=== PATIENT | female | born 1955 | race Caucasian/White ===

== ENCOUNTER 2021-05-16 00:38 | Day surgery (SDC) | payer MEDICARE, OTHER, SELFPAY ==
[2021-05-08 14:12] VITALS: BMI 32.0
[2021-05-16 06:26] VITALS: BP 151/86; PULSE 118; RESP 18; TEMP 36.1; O2SAT 98; BMI 32.1
[2021-05-16] MEDS: LACTATED RINGERS 1,000 ML 150 ML IV CONT (06:38)
--- NOTE | 2021-05-16 06:46 | WPDANESEPPF ---
Anes - Initial Pre Proc Eval Procedure: Operation Date: 05/16/21 07:30 Proposed Procedures p Screening Colonoscopy - Abiel Cramer MD Date/Time: 05/16/21 06:46 Surgeon: Abiel Cramer MD Pre Op Diagnosis: hx of colon polyps Patient Data Age: 65 Gender: F Height: 1.6 m Weight: 82.2 kg Last Vital Signs Temp 36.1 C L 05/16/21 06:26 Pulse 118 H 05/16/21 06:26 Resp 18 05/16/21 06:26 BP 151/86 H 05/16/21 06:26 Pulse Ox 98 05/16/21 06:26 Allergies Allergy/AdvReac Type Severity Reaction Status Date / Time Penicillins Allergy Unknown Rash Verified 05/16/21 06:25 Home Medications Medication Instructions Recorded Confirmed Type ascorbic acid (vitamin C) 1 g PO DAILY 05/08/21 05/08/21 History atorvastatin 10 mg PO DAILY 05/08/21 05/08/21 History calcium carbonate 300 mg PO DAILY 05/08/21 05/08/21 History cholecalciferol (vitamin D3) 50 mcg PO DAILY 05/08/21 05/08/21 History [Vitamin D3] cinnamon bark [Cinnamon] 500 mg PO DAILY 05/08/21 05/08/21 History levothyroxine 75 mcg PO DAILY 05/08/21 05/08/21 History losartan-hydrochlorothiazide 1 tablet PO DAILY 05/08/21 05/08/21 History unqxwjj-xihd-hugfw-oreg-capryl 1 cap PO DAILY 05/08/21 05/08/21 History Patient hx anesthesia problems: none Family hx anesthesia problems: none [facility] Past Medical History Medical History (Updated 05/16/21 @ 06:47 by Trae Chen MD) HTN (hypertension) Hyperlipidemia Hypothyroidism Obesity Surgical History Surgical History (Updated 05/16/21 @ 06:47 by Trae Chen MD) H/O colonoscopy H/O colonoscopy with polypectomy Family History Family History Sibling Family history of cardiovascular disease Father Family history of cardiovascular disease, Onset Age: 69 Social History Social History Smoking status: Never smoker Alcohol intake: current Drinks per week: 4 Living arrangements: with family Spiritual care concerns: No Anes - Eval Final PreProcedure Day of Procedure 05/16/21 06:46 Patient weight: obese Heart: regular rate and rhythm Lungs: clear to auscultation Airway: Mallampati scale class II Neurological: alert and oriented Last oral intake: >/= 8 hours ASA classification: III Emergent: no Anesthetic plan: proceed Anesthesia type and monitoring: general GIVS and standard monitoring Informed Consent: The patient's anesthetic plan and its attendant risks and benefits were discussed with the patient/family/POA. Questions were solicited and answers provided to the satisfaction of the patient/family/POA.
--- NOTE | 2021-05-16 07:39 | WPDGICN ---
Assessment and Plan Assessment and plan (1) History of colon polyps: Code(s): Z86.010 - Personal history of colonic polyps Status: Acute GI Consult Note Consult date/time: 05/16/21 07:39 HPI: Disha Phillips is a 65 year old female Presents for screening colonoscopy. Patient reports that her current weight appetite bowel movements are normal. She denies abdominal pain. She has had no bleeding. She had adenomatous colon polyp identified at time of colonoscopy in 2016. She reports that her maternal aunt has had colon cancer. Otherwise her family history is noncontributory. Patient desires neoplasia screening. Review of Systems Review of Systems: All systems reviewed & are unremarkable except as noted in HPI and below PMFSH Past Medical History Medical History (Updated 05/16/21 @ 07:40 by Abiel Cramer MD) HTN (hypertension) Hyperlipidemia Hypothyroidism Obesity Surgical History Surgical History (Updated 05/16/21 @ 06:47 by Trae Chen MD) H/O colonoscopy H/O colonoscopy with polypectomy Family History Family History Sibling Family history of cardiovascular disease Father Family history of cardiovascular disease, Onset Age: 69 Social History Social History Smoking status: Never smoker Alcohol intake: current Drinks per week: 4 Living arrangements: with family Spiritual care concerns: No Meds Home Medications and Allergies Home Medications Medication Instructions Recorded Confirmed Type ascorbic acid (vitamin C) 1 g PO DAILY 05/08/21 05/16/21 History atorvastatin 10 mg PO DAILY 05/08/21 05/16/21 History calcium carbonate 300 mg PO DAILY 05/08/21 05/16/21 History cholecalciferol (vitamin D3) 50 mcg PO DAILY 05/08/21 05/16/21 History [Vitamin D3] cinnamon bark [Cinnamon] 500 mg PO DAILY 05/08/21 05/16/21 History levothyroxine 75 mcg PO DAILY 05/08/21 05/16/21 History losartan-hydrochlorothiazide 1 tablet PO DAILY 05/08/21 05/16/21 History rafbuvd-gvza-qxtra-oreg-capryl 1 cap PO DAILY 05/08/21 05/16/21 History Allergies Allergy/AdvReac Type Severity Reaction Status Date / Time Penicillins Allergy Unknown Rash Verified 05/16/21 06:25 Vital Signs Vital Signs - 24 hr 05/16/21 06:26 Temperature 97 F L Pulse Rate 118 H Respiratory Rate 18 Blood Pressure 151/86 H Pulse Oximetry 98 Exam Narrative: Physical exam reveals patient be alert. Vital signs stable. HEENT exam is unremarkable. Patient is anicteric. Lungs are clear to auscultation and percussion. Heart is without murmur or extra sounds. Abdominal exam bowel sounds present soft nontender with no organomegaly. Digital external rectal exam is normal.
[2021-05-16 08:16] VITALS: BP 109/71; PULSE 84; RESP 22; O2SAT 98
[2021-05-16 08:26] VITALS: BP 104/65; PULSE 84; RESP 20; O2SAT 99
[2021-05-16 08:36] VITALS: BP 123/89; PULSE 90; RESP 18; O2SAT 99
== END 2021-05-16 08:49 | disposition home or self-care (01) ==
PROVIDERS: PCP Physician Assistant; Visit Provider Internal Medicine Gastroenterology
PROC: 0DJD8ZZ Inspection of Lower Intestinal Tract, Via Natural or Artificial Opening Endoscopic (ICD-10-PCS; CPT 45378; principal; 2021-05-16 07:30)
DX: Z12.11 Encounter for screening for malignant neoplasm of colon (principal); D12.5 Benign neoplasm of sigmoid colon; K63.5 Polyp of colon; I10 Essential (primary) hypertension; E78.5 Hyperlipidemia, unspecified; E03.9 Hypothyroidism, unspecified; E66.9 Obesity, unspecified; Z68.32 Body mass index [BMI] 32.0-32.9, adult
CPT/HCPCS: 45385; 88305; J2704; J7120

== ENCOUNTER 2025-06-06 00:49 | Day surgery (SDC) | payer MEDICARE, OTHER, SELFPAY ==
--- OUTSIDE RECORDS SUMMARY | 2014-04-06 11:30 | XMS_ITS | Continuity of Care Document ---
Author Organization [facility] Address [address] [place] [address] [address] [place] [address] Phone Care Team Providers Care Action Finisher Name Role Phone Lelia PT, MSGalen Unavailable Unavailable Procedures Procedure Date PT RE-EVALUATION THERAPEUTIC EXERCISES NEUROMUSCULAR RE-ED FUNC ACTIVITY THERAPEUTIC EXERCISES NEUROMUSCULAR RE-ED FUNC ACTIVITY HOT/COLD PACK ELECTRIC STIMULATION UNATT THERAPEUTIC EXERCISES NEUROMUSCULAR RE-ED MANUAL THERAPY FUNC ACTIVITY HOT/COLD PACK ELECTRIC STIMULATION UNATT THERAPEUTIC EXERCISES NEUROMUSCULAR RE-ED MANUAL THERAPY FUNC ACTIVITY HOT/COLD PACK ELECTRIC STIMULATION UNATT THERAPEUTIC EXERCISES NEUROMUSCULAR RE-ED MANUAL THERAPY FUNC ACTIVITY HOT/COLD PACK ELECTRIC STIMULATION UNATT PT EVALUATION THERAPEUTIC EXERCISES MANUAL THERAPY HOT/COLD PACK ELECTRIC STIMULATION UNATT THERAPEUTIC EXERCISES NEUROMUSCULAR RE-ED FUNC ACTIVITY 15 MIN HOT/COLD PACK ELECTRIC STIMULATION UNA THERAPEUTIC EXERCISES NEUROMUSCULAR RE-ED FUNC ACTIVITY 15 MIN HOT/COLD PACK ELECTRIC STIMULATION UNA THERAPEUTIC EXERCISES NEUROMUSCULAR RE-ED FUNC ACTIVITY 15 MIN HOT/COLD PACK ELECTRIC STIMULATION UNATT THERAPEUTIC EXERCISES NEUROMUSCULAR RE-ED FUNC ACTIVITY 15 MIN HOT/COLD PACK ELECTRIC STIMULATION UNATT THERAPEUTIC EXERCISES NEUROMUSCULAR RE-ED MANUAL THERAPY HOT/COLD PACK ELECTRIC STIMULATION UNA PT EVALUATION THERAPEUTIC EXERCISES MANUAL THERAPY HOT/COLD PACK ELECTRIC STIMULATION UNATT Advance Directives Directive Yes / No Effective Date File Name No Information Encounters Encounter Description Practice Location Reason(s) For Visit Diagnoses Date Provider Providers Copied on Encounter [facility], [id number], tel:[phone] Warren No Information 0 4 Lelia Galen. [address] [facility], [place] [address], . tel: [phone] [facility] [address], [place], [id number], tel:[phone] Warren No Information 1 4 Lelia Galen. [address] [facility], [facility] [address] [address], [place]. tel: [phone] [facility], [place], [id number], tel:[phone] Warren No Information 6-201 4 Lelia Galen. [address] [facility], [facility] [address], [place] [address], [place]. tel: [phone] [facility] [address], [place], [place], [address], [place] tel:[phone] Warren No Information Mar- 4-201 4 Lleia Galen. [address] [place] [address], [address], [place], [place], [facility], [place]. tel: [phone] [facility] [address], [place], [place], [id number], [place] tel:[phone] Warren No Information 1-201 4 Lelia Galen. [address] [place] [address], [address], [place], [place], [facility], [place]. tel: [phone] [facility] [address], [place], [place], [address], [place] tel:[phone] Warren No Information 9-201 4 Lelia Galen. [address] [place] [address], [address], [place], [place], [facility], [place]. tel: [phone] [facility] [address], [place], [place], [address], [place] tel:[phone] Warren No Information Mar-2 8-201 4 [employer]. . [facility], [place], [place], [address], [place] tel:[phone] Warren No Information Mar-2 6-201 4 Lelia Galen. [address] [place] [address], [address], [place], [place], [facility], [place]. tel: [phone] [facility] [address], [place], [place], [address], [place] tel:[phone] Warren No Information Mar-2 1-201 4 Lelia Galen. [address] [place] [address], [address], [place], [place], [facility], [place]. tel: [phone] [facility] [address], [place], [place], [id number], [phone] Beth No Information 4 Lelia Aaron. [address] [facility], [address], [place], [place], [facility], . tel: [phone] [address], [place], [place], [id number], tel:[phone] Beth No Information 4 Lelia Aaron. [address] [place] [address], [address], [place], [place], [facility], . tel: [phone] [address], [place], [place], [id number], tel:[phone] [place] LumbagoPain in joint involving lower leg 4 Lelia Aaron. [address] [place] [address], [facility], [place], [place], [facility], . tel: [phone] Family History Family Member Type Diagnosis Age At Onset No Information Payers Payer name Insurance type Covered republican ID Authormichael ibarra(s) [facility] [id number] [facility] 2013 Social History Type Description Quantity Date Captured Comments Sex Female Smoking Status No Information Chief Complaint And Reason For Visit No Information Reason For Referral Reason For Referral No Information History Of Present Illness Encounter Date Complaint History Of Prese nt Illness No Information Functional Status Date Functional Assessmen t No Information Instructions Date Instruction Additional Infor mation No Information Assessments Type Assessment Date No Information Patient Care Teams Name Effective Dates (start - stop) Status Members No Information
[2025-05-23 08:28] VITALS: BMI 26.6
--- OUTSIDE RECORDS SUMMARY | 2025-06-06 00:53 | XMS_ITS | Clinical Summary ---
Author Organization [facility] Address [address] [place] [address] Care Team Providers Care Knit Goods Cutter Hand Name Role Phone Raul Haley MD Primary Care Provider [phone] Allergies Active Allergy Reactions Criticality Noted Date Comments Penicillins Rash Medium 03/19/2012 Medications amino acids 82-328 gram-kcal/100 g powder Take by mouth. Activ e BIOTIN ORAL Take by mouth. Act virginie CINNAMON BARK ORAL Active coenzyme Q10 10 mg capsule Take 10 mg by mouth. Active TURMERIC, BULK, MISC by Misc.(Non-Drug ; Combo Route) route. Active magnesium citrate 100 mg tablet Take by mouth. Activ e ezetimibe (ZETIA) 10 mg tablet Take 1 tablet (10 mg total) by mouth daily 30 tablet 5 9 Active atorvastatin (LIPITOR) 10 mg tablet Take 10 mg by mouth daily Active levothyroxine (SYNTHROID) 75 mcg tablet Take 1 tablet by mouth once daily with breakfast 90 tablet 1 Active fexofenadine (COLIN) 180 mg tablet Take 180 mg by mouth daily Active losartan-hydroC HLOROthiazide (HYZAAR) 100-12.5 mg per tablet Take 1 tablet by mouth daily 1 Active tobramycin-dexA METHasone (TOBRADEX) ophthalmic solution 1 Active vit D3-vit S-kdmrugcna-vyh s [phone] kyur-rvg-fy-mg tablet Take by mouth Active Active Problems Problem Noted Date Diagnosed Date Essential hypertension 08/10/2018 Acquired hypothyroidism 08/10/2018 Pure hypercholesterolemia 08/10/2018 Immunizations Immunization Administration Dates Next Due Flucelvax Influenza Quad 06/14/2019,06/22/2018 Influenza, Quadrivalent, Elsy l Culture-based MDCK, Preservative Free, Antibiotic Free, Intramuscular 06/13/2020,06/14/2019 Influenza, Quadrivalent, Spl it, Preservative Free, Intramuscular 06/23/2017 Influenza, Trivalent, IM (MDV) 06/08/2015,2013,06/08/2013 Influenza, Trivalent, Preser vative Free, Intramuscular 06/07/2016 Influenza, Unspecified 06/14/2019,07/02/2018, ZOSTER LIVE 06/28/2019,10/24/2016 ZOSTER Recombinant 09/02/2019,06/28/2019, 019 Surgical History Surgery Date Site/Laterality Comments MENISCUS SURGERY 09/08/2012 - 09/07/2013 Left LEFT OOPHORECTOMY 09/08/1987 - 09/07/1988 Left TRIGGER FINGER RELEASE 2015 Medical History Medical History Date Comments Hypothyroidism Allergic Hyperlipidemia Hypertension Family History Medical History Relation Name Comments Diabetes Brother Heart disease Brother Congenital heart disease Father Diabetes Father Heart failure Father Hypertension Father Arthritis Mother Dementia Mother Diabetes Mother Hypertension Mother Stroke Mother Cancer Sister Diabetes Sister Relation Name Status Comments Brother Father Mother Alive Sister Social History Tobacco Use Types Packs/Day Years Used Date Smoking Tobacco: Never Smokeless Tobacco: Never Alcohol Use Standard Drinks/Week Comments Yes 0 (1 standard drink = 0.6 oz pur e alcohol) on weekends AUDIT-C Answer Date Recorded Frequency of Alcohol Consumption Not on file 09/15/2019 Average Number of Drinks 3 or 4 020 Frequency of Binge Drinking Not on file 04/2020 PHQ-2 Answer Date Recorded PHQ-2 Score 0 04/29/2019 Personal Safety Answer Date Recorded Getting School Help Needed Not on file 08/31 Comments Unknown Sex and Gender Information Value Date Recorded Sex Assigned at Not on file Legal Sex Female 10:34 AM ALL TERRAIN VEHICLE TECHNICIAN Gender Identity Not on file Sexual Orientation Not on file Obstetrics History Para Term AB IAB SAB Ectopic Multiple Livin g Live Births 2 2 Date Outcome GA Total Labor Labor/2nd/3rd Weight Sex Type Anes PTL Marybel A1 A5 Name Clin Para Para Last Filed Vital Signs Vital Sign Reading Time Taken Comments Blood Pressure 138/88 09/15/2019 10:53 AM ALL TERRAIN VEHICLE TECHNICIAN Pulse 100 09/15/2019 10:47 AM ALL TERRAIN VEHICLE TECHNICIAN Temperature 36.9 C (98.5 F) 09/15/2019 10:47 AM ALL TERRAIN VEHICLE TECHNICIAN Respiratory Rate 15 09/15/2019 10:4 7 AM ALL TERRAIN VEHICLE TECHNICIAN Oxygen Saturation 97% 09/15/2019 10: 47 AM ALL TERRAIN VEHICLE TECHNICIAN Inhaled Oxygen Concentration - - Weight 84.3 kg (185 lb 12.8 oz) 021 12:07 PM CDT Height 158.8 cm (5' 2.5) 06/15/2021 12 :07 PM CDT Body Mass Index 33.44 06/15/2021 12:07 PM CDT Plan of Treatment Health Maintenance Due Date Last Done Comments DTaP/Tdap/Td Vaccine (1 - Tdap) 1966 Hepatitis B Screening 1973 Osteoporosis Screening-Bone Density Scan 11/21/2018 11/21/2016 Fall Risk Assessment 03/17/2020 03/17/2019, 08/10/2018, 12/22/2017 Depression Screening 09/15/2020 09/15/2019, 03/17/2019, 08/10/2018, Additional history exists Well Visit 65+ 09/15/2020 09/15/2019, 08/10/2018 Pneumococcal vaccine 65+ (2 of 2 - PCV20 or PCV21) 04/21/2022 04/21/2021 Breast Cancer Screening-Mammogram 05/06/2025 05/06/2024, 11/25/2022, 09/21/2021, Additional history exists Influenza Vaccine (#1) 2025 0, 06/14/2019, 06/14/2019, Additional history exists Colon Cancer Screening-Colonoscopy 03/23/2027 03/23/2017 Colon Cancer Screening-CT Colonography Discontinued 03/23/2017 Colon Cancer Screening-DNA Stool Discontinued 03/23/20 17 Colon Cancer Screening-FIT Discontinued 03/23/2017 Colon Cancer Screening-Sigmoidoscopy Discontinued 03/23/2017 Hepatitis C Screening Completed 10/13/2018 Zoster Vaccine Completed 09/02/2019, 06/09, 06/28/2019, Additional history exists Procedures Procedure Name Priority Date/Time Associated Diagnosis Comments DIAGNOSTIC MAMMOGRAM BILATERAL W TRU Schedule Routine, Read Routine (OP Routine) 05/06/2024 12:19 PM CDT Abnormal mammogram Encounter for screening mammogram for malignant neoplasm of breast HEPATITIS C ANTIBODY Routine 10/13/2018 7:27 AM ALL TERRAIN VEHICLE TECHNICIAN HM COLONOSCOPY Routine 03/23/2017 DEXA SCAN Routine 11/21/2016 from Last 3 Months or Most Recently Relevant to Health Maintenance Results * Diagnostic Mammogram Bilateral W Tru (05/06/2024 12:19 PM CDT) Anatomical Region Laterality Modality Breast Bilateral Mammography 05/06/2024 1:19 PM CDT Impressions 05/06/2024 1:19 PM CDT Unchanged asymmetry in the central LEFT breast, thought probably benign. No mammographic evidence of malignancy within EITHER breast. OVERALL FINAL ASSESSMENT: BI-RADS Category 3: Probably Benign. RECOMMENDATION: Recommend follow-up diagnostic breast imaging in 1 year with BILATERAL diagnostic mammogram and ultrasound if needed. Electronically signed by: Mine Burgos M.D. Narrative 05/06/2024 1:19 PM CDT EXAMINATION: BILATERAL DIGITAL DIAGNOSTIC MAMMOGRAM INCLUDING CAD AND BILATERAL DIGITAL BREAST TOMOSYNTHESIS; LEFT BREAST SONOGRAM HISTORY: 68-year-old female who is undergoing 6 month follow-up evaluation of a probably benign asymmetry seen in the LEFT breast for which attempted biopsy was unsuccessful. The patient has history of breast reduction and also takes hormone replacement therapy. COMPARISON: Multiple priors, most recently biopsy attempt images on 09/03/2023 dating back to mammograms on 06/28/2015 TECHNIQUE: Full field digital mammographic views of BOTH breasts were performed, including computer aided detection (CAD) and BILATERAL digital breast tomosynthesis (DBT). Directed ultrasound evaluation of the LEFT breast was performed. BREAST PARENCHYMAL COMPOSITION: There are scattered areas of fibroglandular density. MAMMOGRAM FINDINGS: Breast parenchymal density has overall increased throughout BOTH breasts compared to prior mammograms, likely related to hormone therapy. The asymmetry in the central LEFT breast seen best on the craniocaudal projection appears unchanged compared to 2022 but is increased from 2020, possibly due to overall parenchymal tissue increase. No suspicious mass, grouped microcalcification, or architectural distortion is seen. SONOGRAM FINDINGS: There is no focal abnormal solid or cystic lesion suggestive of malignancy in the area of recent concern. Tiny cyst is noted adjacent to benign-appearing glandular tissue. These findings were discussed with the patient by Dr. Burgos. Procedure Note Mine Burgos MD - 05/06/2024 EXAMINATION: BILATERAL DIGITAL DIAGNOSTIC MAMMOGRAM INCLUDING CAD AND BILATERAL DIGITAL BREAST TOMOSYNTHESIS; LEFT BREAST SONOGRAM HISTORY: 68-year-old female who is undergoing 6 month follow-up evaluation of a probably benign asymmetry seen in the LEFT breast for which attempted biopsy was unsuccessful. The patient has history of breast reduction and also takes hormone replacement therapy. COMPARISON: Multiple priors, most recently biopsy attempt images on 09/03/2023 dating back to mammograms on 06/28/2015 TECHNIQUE: Full field digital mammographic views of BOTH breasts were performed, including computer aided detection (CAD) and BILATERAL digital breast tomosynthesis (DBT). Directed ultrasound evaluation of the LEFT breast was performed. BREAST PARENCHYMAL COMPOSITION: There are scattered areas of fibroglandular density. MAMMOGRAM FINDINGS: Breast parenchymal density has overall increased throughout BOTH breasts compared to prior mammograms, likely related to hormone therapy. The asymmetry in the central LEFT breast seen best on the craniocaudal projection appears unchanged compared to 2022 but is increased from 2019, possibly due to overall parenchymal tissue increase. No suspicious mass, grouped microcalcification, or architectural distortion is seen. SONOGRAM FINDINGS: There is no focal abnormal solid or cystic lesion suggestive of malignancy in the area of recent concern. Tiny cyst is noted adjacent to benign-appearing glandular tissue. These findings were discussed with the patient by Dr. Burgos. IMPRESSION: Unchanged asymmetry in the central LEFT breast, thought probably benign. No mammographic evidence of malignancy within EITHER breast. OVERALL FINAL ASSESSMENT: BI-RADS Category 3: Probably Benign. RECOMMENDATION: Recommend follow-up diagnostic breast imaging in 1 year with BILATERAL diagnostic mammogram and ultrasound if needed. Electronically signed by: Mine Burgos M.D. us Boyd Patten MD IMG MAMMO PROCEDURES Final Res ult * Hepatitis C antibody (10/13/2018 7:27 AM ALL TERRAIN VEHICLE TECHNICIAN) Pathologist [facility] Hep C Ab NON-REACTI VE NON-REACTI VE [facility] [place] SIGNAL TO CUT-OFF 0.01 <1.00 [facility] [place] 10/13/2018 7:27 AM ALL TERRAIN VEHICLE TECHNICIAN 10/13/2018 7:29 AM ALL TERRAIN VEHICLE TECHNICIAN Narrative [facility] - 10/14/2018 9:43 AM ALL TERRAIN VEHICLE TECHNICIAN FASTING:YES FASTING: YES Resulting Agency Comment Performing Organization Information: Site ID: [id number] Name: [facility]na Lemon Address: [address] [address] Director: Bowen Mai D.O., MPH Aracely Greer MD LAB MICROBIOLOGY - GEN ERAL ORDERABLES Final Result [facility] [place] * COLONOSCOPY (03/23/2017) Pathologist [facility], [facility] Colonoscopy Abnormal Comment:polyps removed, repe at in 5 years Historical Provider HEALTH MAINTENANCE Final Result * DEXA SCAN (11/21/2016) Pathologist [facility], [facility] DEXA Scan Normal Historical Provider HEALTH MAINTENANCE Final Result from Last 3 Months or Most Recently Relevant to Health Maintenance Insurance MEDICARE [facility] [id number] [place] [address] MEDICARE [facility] [employer] LASHELL MARCUM Care Teams Knit Goods Cutter Hand Relationship Specialty Start Date End Date Raul Haley MD PCP - General Internal Medicine 09/11/22
--- OUTSIDE RECORDS SUMMARY | 2025-06-06 00:53 | XMS_ITS | Clinical Summary ---
Author Organization [facility] Address [facility] [place] [address] Care Team Providers Care Telephone Switchboard Operator Name Role Phone Boyd Patten MD Primary Care Provider [phone] Allergies Active Allergy Reactions Criticality Noted Date Comments Penicillins Diarrhea,Hives,Nausea and Vomiting 12/21/2021 Medications Cinnamon Bark Powder Active TURMERIC OR Active levothyroxine 75 MCG tablet 2 Active Amino Acids (COMPLETE AMINO ACID MIX) Powder Active atorvastatin 10 MG tablet Take 1 tablet (10 mg total) by mouth every other day. 2 Active Coenzyme Q10 10 MG capsule Take 10 mg by mouth daily. Active losartan-hydro CHLOROthiazide 100-12.5 MG Tab Take 1 tablet by mouth daily. 2 Active Magnesium Citrate 100 MG Tab Active Multiple Vitamin (MULTIVITAMIN ADULT OR) Active progesterone (PROMETRIUM) 100 MG capsule Take 100 mg by mouth nightly at bedtime. 2 Active OZEMPIC 0.25/0.5 MG/DOSE 2 MG/1.5ML injection (PEN) INJECT 1/2 (ONE-HALF) MG SUBCUTANEOUSLY ONCE A WEEK 2 Active progesterone (PROMETRIUM) 200 MG capsule Take 1 capsule (200 mg total) by mouth nightly. 4 Active Cholecalcifero l (D3 OR) Active estradiol 6 MG pellet 1 each (6 mg total) every 3 (three) months. Active testosterone 75 MG pellet Inject 65 mg into the skin every 3 (three) months. Active Hospital, Clinic, or Other Facility Administered Medication Ordered Dose Route Frequency Start Date End Date Status methylPREDNISolone acetate (DEPO-Medrol) injection 40 mgIndications:Osteoarthritis of left knee, unspecified osteoarthritis type 40 mg IX Once 12/25/2021 Activ e Active Problems No known active problems Immunizations Immunization Administration Dates Next Due Fluad influenza vaccine, Chauncey drivalent (aIIV4), Inactivated, adjuvanted, preservative free, 0.5 mL,IM use 06/11/2021 Influenza (Generic) 06/07/2016, 5,06/08/2014,2012 Influenza Adult (Generic) 06/13/2020,03/2019,06/22/2018,2016 Pneumococcal (Prevnar 13) 04/21/2021 Shingrix 09/02/2019,06/28/2019 Zoster (Zostavax) 35973 Unt/0.65Ml 10/24/2016 Family History Medical History Relation Comments No Known Problems Brother Diabetes Father Heart Disease Father Heart defect Hypertension Father No Known Problems Maternal Aunt Arthritis Maternal Grandfather Cancer Maternal Grandmother At age 83 No Known Problems Maternal Uncle Diabetes Mother Hypertension Mother Stroke Mother No Known Problems Paternal Aunt No Known Problems Paternal Grandfather No Known Problems Paternal Grandmother No Known Problems Paternal Uncle No Known Problems Sister Relation Status Comments Brother Father Maternal Aunt Maternal Grandfather Alive Maternal Grandmother Alive Maternal Uncle Mother Paternal Aunt Paternal Grandfather Paternal Grandmother Paternal Uncle Sister Social History Tobacco Use Types Packs/Day Years Used Date Smoking Tobacco: Never Passive Smoke Exposure: Never Smokeless Tobacco: Never Tobacco Cessation:Counseling Given: No Comments:NA Alcohol Use Standard Drinks/Week Comments Yes 10 (1 standard drink = 0.6 oz pu re alcohol) social PHQ-2 Answer Date Recorded Patient Health Questionnaire-2 Score 0 02/14/2025 Comments No Sex and Gender Information Value Date Recorded Sex Assigned at Not on file Legal Sex Female 2:19 PM CDT Gender Identity Not on file Sexual Orientation Not on file Last Filed Vital Signs Vital Sign Reading Time Taken Comments Blood Pressure 137/86 02/14/2025 2:43 PM CDT Pulse 108 02/14/2025 2:43 PM CDT Temperature 36.9 C (98.5 F) 02/14/2025 2:43 PM CDT Respiratory Rate - - Oxygen Saturation 100% 02/14/2025 2:43 PM CDT Inhaled Oxygen Concentration - - Weight 73 kg (161 lb) 02/14/2025 2:43 PM CDT Height 160 cm (5' 3) 02/14/2025 2:43 PM CDT Body Mass Index 28.52 02/14/2025 2:43 PM CDT Plan of Treatment Health Maintenance Due Date Last Done Comments Colorectal Cancer Screening Colonoscopy (10 Years) 1955 Hepatitis C 1973 DTaP, Tdap and Td Vaccines (1 - Tdap) 1974 Annual Medicare Wellness Visit 2020 Dexa Scan (General) 2020 Pneumococcal Vaccine: 50+ Years (2 of 2 - PPSV23) 04/21/2022 04/21/2021 COVID-19 Vaccine (4 - 2024- season) 2025 06/16/2021, 12/03/2020, 11/02/2020 Mammogram Screening 05/06/2026 05/06/2024, 09/03/2023, 08/04/2023, Additional history exists RSV Immunization or 60+ Years (1 - 1-dose 75+ series) 2030 Zoster Vaccines Completed 09/02/2019, 06/09, 10/24/2016 PHQ-2 (Physician [place]) Completed 02/14/2025 Meningococcal B Vaccine Aged Out No l onger eligible based on patient's age to complete this topic Meningococcal Vaccine Aged Out No manisha noy eligible based on patient's age to complete this topic RSV Immunizations Under 20 Months Aged Out No longer eligible based on patient's age to complete [place] [id number] [employer] Care Teams Telephone Switchboard Operator Relationship Specialty Start Date End Date Boyd Patten MD [address] [place] [address] PCP - General FAMILY PRACTICE 08/16/24
--- OUTSIDE RECORDS SUMMARY | 2025-06-06 00:53 | XMS_ITS | Clinical Summary ---
Author Organization [facility] Address [address] [address] Phone Care Team Providers Care Dowel Pin Man Name Role Phone Boyd Patten MD Primary Care Provider [phone] Allergies Active Allergy Reactions Criticality Noted Date Comments Penicillins Rash,Diarrhea,Hives, Nausea and Vomiting High 03/19/2012 Medications CINNAMON BARK (CINNAMON ORAL) Acti ve MULTIVITAMINS WITH FLUORIDE (MULTI-VITAMIN ORAL) Active AMINO ACIDS (AMINO ACID ORAL) Take by mouth. Acti ve coenzyme Q10 Capsule Take 10 mg by mouth daily. Active TURMERIC, BULK, MISC by Misc.(Non-Drug; Combo Route) route. Active losartan-hydroCHLO ROthiazide (HYZAAR) 100-12.5 mg tabletIndications: Well female exam with routine gynecological exam,Special screening examination for human papillomavirus (HPV),Screening for malignant neoplasm of cervix 01/21/20 18 Active MAGNESIUM ORALIndications:We ll female exam with routine gynecological exam,Special screening examination for human papillomavirus (HPV),Screening for malignant neoplasm of cervix Take by mouth. Active levothyroxine 75 mcg tablet TAKE 1 TABLET BY MOUTH ONCE DAILY WITH BREAKFAST 08/12/20 19 Active Vit D3 & M-Ddylqvwmh-Vidy [id number] deki-tap-ad-mg Tablet Take by mouth. Activ e magnesium citrate 100 mg Tablet Take by mouth. A ctive atorvastatin (LIPITOR) 10 mg tablet Take 10 mg by mouth daily. Active progesterone micronized (PROMETRIUM) 200 mg Capsule Take 200 mg by mouth daily. 09/04/20 24 Active estradioL 6 mg Pellet 6 mg by Implant route every 90 days. Active testosterone (TESTOPEL) 75 mg Pellet Inject 65 mg by subcutaneous injection every 90 days. ACTUAL DOSE 62.5MG Active Active Problems No known active problems Encounters Date Type Department Care Team Description 05/24/2025 External Device Data [facility]STRACTION Provider, Abstract 05/17/2025 External Device Data [facility] Provider, Abstract 04/13/2025 External Device Data [facility] Provider, Abstract 04/12/2025 External Device Data [facility] Provider, Abstract 03/23/2025 External Device Data [facility] Provider, Abstract 03/23/2025 External Device Data [facility] Provider, Abstract 03/22/2025 External Device Data [facility]CTION Provider, Abstract from Last 3 Months Immunizations Immunization Administration Dates Next Due (PFIZER)(12 YR UP) COVID-19 VACCINE - EMERGENCY USE AUTHORIZATION, MRNA, [id number](PF) 30 MCG/0.3 ML IM SUSP 06/16/2021,12/03/2020,11/02/2020 (SHINGRIX)(50 YRS UP) ZOSTER VACCINE RECOMBINANT, 0.5 ML, IM 06/28/2019 INFLUENZA VACCINE HIGH DOSE QUADRIVALENT 65 YR UP PF IM 06/05/2022 INFLUENZA VACCINE QUADRIVALE NT 6 MOS UP CELL DERIVED PF IM 06/14/2019 Influenza Seasonal Unspecifi ed Formulation IM 06/23/2017,06/08/2015,06/08/2014,2012 Zoster Vaccine Live SQ 10/24/2016 Family History Medical History Relation Name Comments Heart Disease Brother Diabetes Father Colon Cancer Maternal Aunt Ovarian Cancer Maternal Grandmother Cancer Maternal Uncle brain Diabetes Mother Hypertension Mother Stroke Mother Relation Name Status Comments Brother Father Maternal Aunt Maternal Grandmother Maternal Uncle Mother Social History Tobacco Use Types Packs/Day Years Used Date Smoking Tobacco: Never Smokeless Tobacco: Never Tobacco Cessation:Counseling Given: Not Answered Alcohol Use Standard Drinks/Week Comments Yes 0 (1 standard drink = 0.6 oz pur e alcohol) 7-8 Comments No Sex and Gender Information Value Date Recorded Sex Assigned at Not on file Legal Sex Female 6:03 AM ALUMINUM BOATS ASSEMBLER Gender Identity Not on file Sexual Orientation Not on file Occupation Industry Job Start Date Job End Date Not on file Not on file Not on file Not on file Last Filed Vital Signs Vital Sign Reading Time Taken Comments Blood Pressure 152/84 10/12/2024 1:19 PM ALUMINUM BOATS ASSEMBLER Pulse 95 10/12/2024 1:19 PM ALUMINUM BOATS ASSEMBLER Temperature 37.7 C (99.8 F) 10/12/2024 1:19 PM ALUMINUM BOATS ASSEMBLER Respiratory Rate - - Oxygen Saturation 98% 10/12/2024 1:19 PM ALUMINUM BOATS ASSEMBLER Inhaled Oxygen Concentration - - Weight 73.5 kg (162 lb) 10/12/2024 1:19 PM ALUMINUM BOATS ASSEMBLER Height 160 cm (5' 3) 10/12/2024 1:19 PM ALUMINUM BOATS ASSEMBLER Body Mass Index 28.7 10/12/2024 1:19 PM ALUMINUM BOATS ASSEMBLER Plan of Treatment Health Maintenance Due Date Last Done Comments Pre-Diabetes and Diabetes Screening 1955 DTAP/TDAP/TD VACCINES (1 - Tdap) 1974 FIT-DNA Q 3 years 2000 FIT/FOBT Q 1 year 2000 Flex Sig/CT Colonography Q 5 years 2000 COLORECTAL SCREENING 09/08/2019 09/08/2009 (Previously completed) Colorectal Cancer Screening 09/08/2019 OSTEOPOROSIS SCREENING 2020 PNEUMOCOCCAL VACCINE 50+ YEA RS (2 of 2 - PCV20 or PCV21) 04/21/2022 04/21/2021 INFLUENZA VACCINE (#1) 2025 2, 06/11/2021, 06/13/2020, Additional history exists BREAST CANCER SCREENING 05/06/2025 05/06/20 24, 05/06/2024, 09/03/2023, Additional history exists COVID-19 Vaccine (4 - 2024-2 6 season) 2025 06/16/2021, 12/03/2020, 11/02/2020 RSV VACCINE (60+ or ) (1 - 1-dose 75+ series) 2030 ZOSTER VACCINE Completed 09/02/2019, 06/09, 10/24/2016 Procedures Procedure Name Priority Date/Time Associated Diagnosis Comments MAMMO 3D ARIS SCREEN BILAT W OR WO CAD Routine 08/29/2020 from Last 3 Months or Most Recently Relevant to Health Maintenance Results * MAMMO SCRN BILAT 3D ARIS W OR WO CAD (08/29/2020) Anatomical Region Laterality Modality Breast Bilateral Mammography us Abstract Provider MAMMO ORDERABLES Edited Result - Final from Last 3 Months or Most Recently Relevant to Health Maintenance Insurance MEDICARE PART A AND B [facility] RX [facility] DATA Medicare Part B Care Teams Dowel Pin Man Relationship Specialty Start Date End Date Boyd Patten MD [address] [place], [place] [id number] PCP - General Family Practice 10/12/24
--- OUTSIDE RECORDS SUMMARY | 2025-06-06 00:53 | XMS_ITS | Clinical Summary ---
Author Organization [facility] Address [address] [place] [address] Care Team Providers Care Pattern Chain Builder Name Role Phone Amauri Crowe MD Primary Care Provider [phone] Source Comments [facility],non-owned Affiliates and Associated Physician Practices is amultiple site organization consisting of ambulatory clinics and hospital sitesin [place], [place] and [place]. This disclosure is being madepursuant to the Care Everywhere program and may not contain all information available regarding this patient. Last updated 18.[facility] Allergies Active Allergy Reactions Criticality Noted Date Comments Penicillins 07/03/2016 Medications * Be aware that medications may not be up to date on this document. Alwaysverify current medications with the patient. LISINOPRIL PO Active atorvastatin (LIPITOR) 10 MG tablet Take 10 mg by mouth at bedtime Active Thyroid (NATURE-THROID PO) Active Cetirizine HCl (ZYRTEC PO) Active benzonatate (TESSALON) 100 MG capsule Take 100 mg by mouth 3 times daily as needed for Cough Active Diphenhydramine -Phenylephrine (DELSYM NIGHT TIME COUGH/COLD PO) Active montelukast (SINGULAIR) 10 MG tablet Take 1 Tab by mouth once daily 30 Tab 03/10/2017 Active Family History Medical History Relation Name Comments Heart defect Father Cancer - Other Sister Relation Name Status Comments Father Sister Social History Tobacco Use Types Packs/Day Years Used Date Smoking Tobacco: Never Smokeless Tobacco: Never Comments Unknown Sex and Gender Information Value Date Recorded Sex Assigned at Not on file Legal Sex Female 9:35 AM CDT Gender Identity Not on file Sexual Orientation Not on file Last Filed Vital Signs Vital Sign Reading Time Taken Comments Blood Pressure 144/76 03/10/2017 5:53 PM CDT Pulse 82 03/10/2017 5:53 PM CDT Temperature 36.8 C (98.3 F) 03/10/2017 5:53 PM CDT Respiratory Rate 16 03/10/2017 5:53 PM CDT Oxygen Saturation 97% 03/10/2017 5:53 PM CDT Inhaled Oxygen Concentration - - Weight 77.1 kg (170 lb) 03/10/2017 5:53 PM CDT Height 161.3 cm (5' 3.5) 03/10/2017 5:53 PM CDT Body Mass Index 29.64 03/10/2017 5:53 PM CDT Plan of Treatment Health Maintenance Due Date Last Done Comments BONE DENSITY TESTING 1955 COLOGUARD (AGES 45-75) - COL ON CA SCREENING 1955 COLON MONITORING 1955 COLONOSCOPY - COLON CA SCREENING 1955 CT COLONOGRAPHY - COLON CA SCREENING 1955 Colorectal Cancer Screening 1955 FIT - COLON CA SCREENING 1955 FLEX SIG - COLON CA SCREENING 1955 MAMMOGRAM 1955 HEPATITIS C SCREENING 09/01/1973 DTAP/TDAP/TD VACCINES (1 - Tdap) 1974 PNEUMOCOCCAL VACCINE 50+ (1 of 1 - PCV) 2005 ZOSTER VACCINE (1 of 2) 2005 DEPRESSION SCREENING 09/08/2024 COVID-19 VACCINE (1 - 2023-2 5 season) 2025 INFLUENZA VACCINE (#1) 2025 Respiratory Syncytial Virus (RSV) Vaccine Pt: or over 60 yrs (1 - 1-dose 75+ series) 2030 HEPATITIS B VACCINE Aged Out No longe r eligible based on patient's age to complete this topic HIB VACCINE Aged Out No longer eligi ble based on patient's age to complete this topic HPV VACCINE Aged Out No longer eligi ble based on patient's age to complete this topic MENINGOCOCCAL (Group B) VACC INE SHARED DECISION-MAKING Aged Out No longer eligibl e based on patient's age to complete this topic MENINGOCOCCAL GROUPS A/C/Y/W VACCINE Aged Out No longer eligible b ased on patient's age to complete this topic Insurance MEDICARE Care Teams Pattern Chain Builder Relationship Specialty [place] [address] [place] [address] [address] [place] [address] PCP - General Internal Medicine 07/03/16
[2025-06-06 06:44] VITALS: BMI 28.2
[2025-06-06 06:46] VITALS: BP 142/86; PULSE 102; RESP 16; TEMP 36.6; O2SAT 97
[2025-06-06] MEDS: LACTATED RINGERS 1,000 ML 150 ML IV CONT (06:52)
--- NOTE | 2025-06-06 07:45 | PM.HPGS ---
History of Present Illness History of Present Illness Consent: Risks, benefits, and alternatives have been discussed and questions answered. Patient agrees to proceed with procedure. Chief complaint: Personal history of colon polyps, unspecified Narrative: Disha Phillips is a 69 year old female with colon polyp in 2020 Review of Systems Review of Systems: All systems reviewed & are unremarkable except as noted in HPI and below PMFSH Past Medical History Medical History Arthritis Hypertension Thyroid disorder Surgical History Surgical History (Updated 11/27/21 @ 12:03 by Elizabeth Murry) H/O colonoscopy with polypectomy H/O colonoscopy Family History Family History Father Diabetes mellitus Heart disease Mother Diabetes mellitus Hypertension Cerebrovascular accident Sibling Diabetes mellitus Thyroid disorder Social History Social History (System 11/27/21 @ 12:03 by Elizabeth Murry) Smoking status: Never smoker Alcohol intake: current Drinks per week: 8 Substance use type: does not use Other substance usage details: gummy Living arrangements: with family Additional living arrangements comments: with sp Spiritual care concerns: No Meds Home Medications and Allergies Home Medications ?Medication ?Instructions ?Recorded ?Confirmed ?Type ascorbic acid (vitamin C) 1,000 mg 1 g PO DAILY 05/08/21 06/06/25 History tablet losartan 100 1 tablet PO DAILY 05/08/21 06/06/25 History mg-hydrochlorothiazide 12.5 mg tablet levothyroxine 75 mcg tablet 75 mcg PO DAILY #90 tabs 09/27/21 06/06/25 Rx Balance Of Nature 2 cap PO BID 07/26/24 06/06/25 History calcium 300 mg-D3 25 mcg-magnesium 1 tablet PO DAILY 07/26/24 06/06/25 History 66 mg-K2 37.5 mcg-herbal tablet (Alive Calcium-Vitamin D3-K2) [place] 1 tab-cap PO DAILY 07/26/24 06/06/25 History magnesium carb,citrate,oxide 300 mg PO BID 07/26/24 06/06/25 History progesterone micronized 200 mg 200 mg PO DAILY 07/26/24 06/06/25 History capsule semaglutide 0.25 mg or 0.5 mg (2 0.25 mg subcut WEEKLY 07/26/24 06/06/25 History mg/1.5 mL) subcutaneous pen injector Allergies Allergy/AdvReac Type Severity Reaction Status Date / Time Penicillins Allergy Mild Other Verified 06/06/25 06:42 Vital Signs Vital Signs - 24 hr 06/06/25 06:46 Temperature 97.9 F Pulse Rate 102 H Respiratory Rate 16 Pulse Oximetry 97 Oxygen Delivery Room Air Exam Const: General: comfortable and no acute distress HENMT: Face/Nose/Sinus: Normal nares present Eyes: General: appearance normal, both eyes and all related structures Resp: Auscultation: clear to auscultation bilaterally Cardio: Rate: regular rate Rhythm: regular rhythm GI: Inspection: non-distended GI Palp: Yes Soft to palpation Skin: General skin exam: normal color Neuro: Speech: normal speech Extrem: General: normal to inspection Psych: Mental Status: mental status grossly normal Assessment and Plan Assessment and plan (1) History of colon polyps: Code(s): Z86.010 - Personal history of colon polyps Status: Acute Assessment and Plan: colonoscopy
--- NOTE | 2025-06-06 07:45 | WPDANESEPPF ---
Anes - Initial Pre Proc Eval Procedure: Operation Date: 06/06/25 08:00 Proposed Procedures p Screening Colonoscopy - Sky Camacho MD Date/Time: 06/06/25 07:45 Surgeon: Sky Camacho MD Pre Op Diagnosis: Personal history of colon polyps, unspecified Patient Data Age: 69 Gender: F Height: 1.6 m Weight: 72.2 kg Last Vital Signs Temp 36.6 C 06/06/25 06:46 Pulse 102 H 06/06/25 06:46 Resp 16 06/06/25 06:46 Pulse Ox 97 06/06/25 06:46 O2 Del Method Room Air 06/06/25 06:46 Allergies Allergy/AdvReac Type Severity Reaction Status Date / Time Penicillins Allergy Mild Other Verified 06/06/25 06:42 Home Medications ?Medication ?Instructions ?Recorded ?Confirmed ?Type ascorbic acid (vitamin C) 1,000 mg 1 g PO DAILY 05/08/21 06/06/25 History tablet losartan 100 1 tablet PO DAILY 05/08/21 06/06/25 History mg-hydrochlorothiazide 12.5 mg tablet levothyroxine 75 mcg tablet 75 mcg PO DAILY #90 tabs 09/27/21 06/06/25 Rx Balance Of Nature 2 cap PO BID 07/26/24 06/06/25 History calcium 300 mg-D3 25 mcg-magnesium 1 tablet PO DAILY 07/26/24 06/06/25 History 66 mg-K2 37.5 mcg-herbal tablet (Alive Calcium-Vitamin D3-K2) [place] 1 tab-cap PO DAILY 07/26/24 06/06/25 History magnesium carb,citrate,oxide 300 mg PO BID 07/26/24 06/06/25 History progesterone micronized 200 mg 200 mg PO DAILY 07/26/24 06/06/25 History capsule semaglutide 0.25 mg or 0.5 mg (2 0.25 mg subcut WEEKLY 07/26/24 06/06/25 History mg/1.5 mL) subcutaneous pen injector Patient hx anesthesia problems: none Family hx anesthesia problems: none Results Review: All pre-operative results and documents have been reviewed as part of the pre-operative evaluation. [facility] Past Medical History Medical History Obesity Hyperlipidemia Hypothyroidism HTN (hypertension) Thyroid disorder Hypertension Arthritis Surgical History Surgical History H/O colonoscopy with polypectomy H/O colonoscopy Family History Family History Father Diabetes mellitus Heart disease Mother Diabetes mellitus Hypertension Cerebrovascular accident Sibling Diabetes mellitus Thyroid disorder Sibling Family history of cardiovascular disease Father Family history of cardiovascular disease, Onset Age: 69 Social History Social History Smoking status: Never smoker Alcohol intake: current Drinks per week: 8 Substance use type: does not use Other substance usage details: gummy Living arrangements: with family Additional living arrangements comments: with sp Spiritual care concerns: No Anes - Eval Final PreProcedure Day of Procedure 06/06/25 07:45 Patient weight: overweight Heart: regular rate and rhythm Airway: Mallampati scale class II Neurological: alert and oriented Last oral intake: >/= 8 hours ASA classification: II Emergent: no Anesthetic plan: proceed Anesthesia type and monitoring: general GIVS and standard monitoring Results Review: All pre-operative results and documents have been reviewed as part of the pre-operative evaluation. Informed Consent: The patient's anesthetic plan and its attendant risks and benefits were discussed with the patient/family/POA. Questions were solicited and answers provided to the satisfaction of the patient/family/POA.
[2025-06-06 08:04] VITALS: BP 95/61; PULSE 86; RESP 20; O2SAT 95
--- NOTE | 2025-06-06 08:05 | S_PTH ---
PATIENT: Disha Phillips LOC: [facility] Zhang#:[id number] AGE/SX: 69/F ROOM: RE06/06/[address]: Sky Camacho MD : 1955 BED: DIS: 06/06/2025 SPEC #: [id number] RECD: 06/06/25 10:56 STATUS: FRANK MENDEZ #: [id number] THEO: 06/06/25 08:[address]: Sky Camacho DEPT: [facility] Surgical RECD BY: Shelbie Coyne ENTERED: 06/06/25 10:56 SP TYPE: Surgical OTHR DR: Boyd PattenMD Tissues: A - Colon Polypectomy Procedures: Hematoxylin and Eosin Stain Gross and Microscopic Level 4
[2025-06-06 08:14] VITALS: BP 103/65; PULSE 84; RESP 16; O2SAT 100
[2025-06-06 08:24] VITALS: BP 107/75; PULSE 89; RESP 22; O2SAT 98
== END 2025-06-06 08:36 | disposition home or self-care (01) ==
PROVIDERS: PCP Family Medicine; Visit Provider Internal Medicine Gastroenterology
PROC: 0DJD8ZZ Inspection of Lower Intestinal Tract, Via Natural or Artificial Opening Endoscopic (ICD-10-PCS; CPT 45378; principal; 2025-06-06 08:00)
DX: Z12.11 Encounter for screening for malignant neoplasm of colon (principal); K63.5 Polyp of colon; K64.8 Other hemorrhoids; E78.5 Hyperlipidemia, unspecified; E03.9 Hypothyroidism, unspecified; I10 Essential (primary) hypertension; M19.90 Unspecified osteoarthritis, unspecified site; F12.90 Cannabis use, unspecified, uncomplicated; Z79.85 Long-term (current) use of injectable non-insulin antidiabetic drugs; Z98.890 Other specified postprocedural states; Z82.49 Family history of ischemic heart disease and other diseases of the circulatory system
CPT/HCPCS: 45385; 88305; J2704; J7120